=== PATIENT | female | born 1950 | race Asian ===

== ENCOUNTER → 2018-05-30 | Outpatient (CLI) | payer OTHER | END | disposition home or self-care (01) | LOC: LAB SHORT 14:40 → LAB 14:40 | PROVIDERS: Family Medicine | DX: Z12.4 Encounter for screening for malignant neoplasm of cervix (principal) | CPT/HCPCS: 88175 ==

== ENCOUNTER 2019-02-23 05:32 | Day surgery (SDC) | payer OTHER ==
[~2019-02-23] VITALS: Ht 162.6 cm; Wt 67.1 kg
== END 2019-02-23 13:45 | disposition home or self-care (01) ==
LOC: ORSCSDS 05:32
PROVIDERS: Internal Medicine Gastroenterology
PROC: 0DJD8ZZ Inspection of Lower Intestinal Tract, Via Natural or Artificial Opening Endoscopic (ICD-10-PCS; principal; 2019-02-23 13:30)
DX: Z12.11 Encounter for screening for malignant neoplasm of colon (principal); K57.30 Diverticulosis of large intestine without perforation or abscess without bleeding; K64.8 Other hemorrhoids; E78.5 Hyperlipidemia, unspecified
CPT/HCPCS: J2704; J7120

== ENCOUNTER 2020-07-04 08:07 | Day surgery (SDC) | payer OTHER ==
[~2020-07-04] VITALS: Ht 162.6 cm; Wt 64.1 kg
[~2020-07-04 08:07] MED LIST: ALENDRONATE SOD70 MG PO
== END 2020-07-04 09:38 | disposition home or self-care (01) ==
LOC: ORSCSDS 08:07
PROVIDERS: Internal Medicine Gastroenterology
PROC: 0DB68ZX Excision of Stomach, Via Natural or Artificial Opening Endoscopic, Diagnostic (ICD-10-PCS; principal; 2020-07-04 09:15)
DX: K30 Functional dyspepsia (principal); B96.81 Helicobacter pylori [H. pylori] as the cause of diseases classified elsewhere; E78.00 Pure hypercholesterolemia, unspecified; K20.90 Esophagitis, unspecified without bleeding; Z79.899 Other long term (current) drug therapy
CPT/HCPCS: 88305; 88342; A9270; J2001; J2704; J7120

== ENCOUNTER 2022-05-11 08:43 | Day surgery (SDC) | payer OTHER ==
[~2022-05-11] VITALS: Ht 162.6 cm; Wt 65.7 kg
== END 2022-05-11 11:35 | disposition home or self-care (01) ==
LOC: ORSCSDS 08:43
PROVIDERS: Student in an Organized Health Care Education/Training Program
PROC: 08DJ3ZZ Extraction of Right Lens, Percutaneous Approach (ICD-10-PCS; principal; 2022-05-11 11:00)
DX: H25.13 Age-related nuclear cataract, bilateral (principal); K21.9 Gastro-esophageal reflux disease without esophagitis; Z98.890 Other specified postprocedural states; H35.3131 Nonexudative age-related macular degeneration, bilateral, early dry stage; Z79.899 Other long term (current) drug therapy
CPT/HCPCS: J2001; J2250; J3010; J7040; V2632

== ENCOUNTER 2022-05-18 08:21 | Day surgery (SDC) | payer OTHER ==
[~2022-05-18] VITALS: Ht 162.6 cm; Wt 65.5 kg
--- NOTE | 2022-05-18 10:25 | NUR ---
05/18/22 1025 Dionne Light CALL LIGHT WITHIN REACH. TETRACAINE AT LEFT EYE IN AT 1023 AND PLEDGETT IN AT 1024
== END 2022-05-18 12:15 | disposition home or self-care (01) ==
LOC: ORSCSDS 08:21
PROVIDERS: Student in an Organized Health Care Education/Training Program
PROC: 08DK3ZZ Extraction of Left Lens, Percutaneous Approach (ICD-10-PCS; principal; 2022-05-18 11:00)
DX: H25.12 Age-related nuclear cataract, left eye (principal); Z96.1 Presence of intraocular lens; Z79.899 Other long term (current) drug therapy
CPT/HCPCS: J2001; J2250; J3010; J7040; V2632